=== PATIENT | male | born 1950 | race Caucasian/White ===

== ENCOUNTER 2019-08-15 17:00 | Emergency (ER) | payer OTHER ==
--- NOTE | 2019-08-15 17:34 | Emergency Department Record ---
History of Present Illness - General Chief complaint: Head Injury Stated complaint: FALL/HEAD LAC Time Seen by Provider: 08/15/19 17:14 Source: Patient Mode of Arrival: Ambulatory Limitations: No limitations Travel/Exposure to [place] Within 21 Days of Symptoms: No - History of Present Illness Initial comments: The patient is here due to getting dizzy at home and falling and cutting the R side of his head on his dog's dish bowl. The patient denies any LOC or neck pain and is not on any blood thinners. Since he has had no MCINTYRE or confusion. The patient states he was sitting at the kitchen table and got up and turned and be came dizzy and fell hitting his head. He did not pass out and was awake throughout the event. The patients also does corroborate his story. Presently the patient denies any weakness, MCINTYRE, neck pain, CP, SOB, nausea or AP. He has had no recent illnesses and no new medicines. The patient does have metastatic prostate CA presently. MD Complaint: Head injury Onset/Timin -: Hour(s) Mechanism of Injury: Other Location: Temporal Place: Home Severity scale (1-10): 8 Consistency: Constant Other Injuries: Laceration - Related Data Home Medications Medication Instructions Recorded Confirmed Last Taken Acetaminophen [Pain Relief] 650 mg PO Q8H 08/15/19 08/15/19 Unknown Allopurinol [Zyloprim] 300 mg PO DAILY 08/15/19 08/15/19 Unknown Amlodipine Besylate [Norvasc] 10 mg PO DAILY 08/15/19 08/15/19 Unknown Enzalutamide [Xtandi] 40 mg PO DAILY 08/15/19 08/15/19 Unknown Lisinopril 40 mg PO DAILY 08/15/19 08/15/19 Unknown Methocarbamol [Robaxin] 750 mg PO TID 08/15/19 08/15/19 Unknown Spironolactone [Aldactone] 25 mg PO DAILY 08/15/19 08/15/19 Unknown Venlafaxine HCl [Effexor] 37.5 mg PO DAILY 08/15/19 08/15/19 Unknown Zolpidem Tartrate [Ambien] 10 mg PO QHS 08/15/19 08/15/19 Unknown Allergies/Adverse reactions: Allergies Allergy/AdvReac Type Severity Reaction Status Date / Time No Known Drug Allergies Allergy Verified 08/15/19 17:17 Travel Screening - Travel/Exposure Within Last 30 Days Have you traveled within the last 30 days?: No - Travel/Exposure Within Last Year Have you traveled outside the [place] in the last year?: No - Additonal Travel Details Have you been exposed to anyone with a communicable illness?: No - Travel Symptoms Symptom Screening: Headache Review of Systems Constitutional: Denies: Chills, Fever Eyes: Denies: Eye discharge ENT: Denies: Congestion Respiratory: Denies: Cough, Dyspnea Cardiovascular: Denies: Arrhythmia Endocrine: Denies: Fatigue Gastrointestinal: Denies: Nausea Genitourinary: Denies: Dysuria Musculoskeletal: Denies: Arthralgia Skin: Denies: Bruising Past Medical History - SOCIAL HISTORY Smoking Status: Never smoker Alcohol Use: Rare Drug Use: None - RESPIRATORY Hx Respiratory Disorders: Yes Hx Sleep Apnea: Yes Hx of CPAP: Yes - CARDIOVASCULAR Hx Cardio Disorders: Yes Hx Hypertension: Yes - GI Hx GI Disorders: Yes Hx Hiatal Hernia: Yes (umbilical) - Hx Genitourinary Disorders: Yes Hx Prostate Problems: Yes - ENDOCRINE Hx Endocrine Disorders: No - MUSCULOSKELETAL Hx Musculoskeletal Disorders: Yes Hx Arthritis: Yes Hx Gout: Yes - PSYCH Hx Psych Problems: No - HEMATOLOGY/ONCOLOGY Hx Hematology/Oncology Disorders: Yes 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 negative: Atraumatic, Normal inspection (There is a 3 cm lac to the mid R parietal area.) - Eye Eye exam: Normal appearance, PERRL, EOMI. negative: Conjunctival injection - ENT Throat exam: Normal inspection. negative: Tonsillar erythema, Tonsillar exudate - Neck Neck exam: Normal inspection, Full ROM. negative: Tenderness - Respiratory Respiratory exam: Normal lung sounds bilaterally. negative: Respiratory distress - Cardiovascular Cardiovascular Exam: Regular rate, Normal rhythm, Normal heart sounds - GI/Abdominal GI/Abdominal exam: Soft, Normal bowel sounds. negative: Tenderness - Extremities Extremities exam: Normal inspection, Full ROM, Normal capillary refill. negative: Tenderness - Neurological Neurological exam: Alert, Normal gait. negative: Abnormal gait, Motor sensory deficit Course Vital Signs 08/15/19 17:10 Temperature 97.6 F Pulse Rate [ 65 Pulse Ox Probe] Respiratory 18 Rate Blood Pressure 124/70 [Right Arm] Pulse Ox 92 L - Reevaluation(s) Reevaluation #1: Procedure note: the scalp lac over the R parietal area was prepped with betadine and anesth. with Lido 1% with EPi. The wound was lavaged with sterile saline and not thru the muscle. The lac was then closed with 7 alexandra. There were no complications. 08/15/19 19:01 Reevaluation #2: The patient is doing very well at this time. He denies any serious head pain or any neck pain. I did discuss the EKG, labs and head CT with the patient and the need for follow up if not better. 08/15/19 19:02 Medical Decision Making - Data Complexity MDM Data: EKG Ordered and/or Reviewed - Lab Data Result diagrams: 08/15/19 17:47 08/15/19 17:47 - EKG Data -: EKG Interpreted by Me EKG: No Acute Changes (NSR at 59, LVH with repolarization abnormalities.) Disposition Disposition: Discharge Clinical Impression: Laceration of scalp Qualifiers: Encounter type: initial encounter Qualified Code(s): S01.01XA - Laceration without foreign body of scalp, initial encounter Disposition: Home, Self-Care Condition: (2) Stable Instructions: Laceration (ED), Head Injury (ED) Additional Instructions: Keep the scalp dry for 2 days and use Tylenol for pain. Have the alexandra removed in 10 days. Return to the ER for any return of the dizziness, worsening headache, vomiting, or confusion. Forms: Patient Portal Access Time of Disposition: 18:59 Quality - Quality Measures Quality Measures: N/A - Blood Pressure Screening View Details: Yes Does Patient Have Any of the Following: Active Dx of HTN Blood Pressure Classification: Pre-Hypertensive BP Reading Systolic Measurement: 124 Diastolic Measurement: 70 Screening for High Blood Pressure: Patient Exclusion, Hx of HTN [G9744]
[2019-08-15 17:53] LABS: ABSOLUTE NEUTROPHIL COUNT 9.72; BASO % 0.2 % (0-6); EOS % 1.2 % (0-6); GRAN % 78.2 % (47-80); HEMOGLOBIN 14.3 gm/dl (14.0-18.0); LYMPH % 14.1 % (16-45); MEAN CELL VOLUME 90.3 fl (81-97); MEAN CORPUSCULAR HEMOGLOBIN 29.4 pg (27-33); MEAN CORPUSCULAR HGB CONC 32.5 g/dl (32-36); MEAN PLATELET VOLUME 9.5 fl (7.4-10.4); MONO % 6.3 % (0-9); PLATELET COUNT 316 K/uL (130-400); RED BLOOD COUNT 4.87 M/uL (4.40-5.70); RED CELL DISTRIBUTION WIDTH 14.5 % (11.5-14.5); WHITE BLOOD COUNT W/O DIFF 12.4 K/uL (4.2-12.2)
[2019-08-15 18:08] LABS: BLOOD UREA NITROGEN 22 mg/dL (8-23); CREATININE 1.2 mg/dL (0.7-1.2); EST GLOMERULAR FILTRATION RATE > 60 mL/min
[2019-08-15 18:09] LABS: TOTAL PROTEIN 6.6 g/dL (6.6-8.7)
[2019-08-15 18:11] LABS: GLUCOSE,RANDOM 123 mg/dL (74-109)
[2019-08-15 18:14] LABS: ALB/GLOB RATIO 1.6 (1.1-1.8); ALBUMIN 4.1 g/dL (4.0-5.0); ALKALINE PHOSPHATASE 53 U/L (40-129); ALT/SGPT 18 U/L (<41); AST/SGOT 20 U/L (10.0-50.0)
--- NOTE | 2019-08-15 18:50 | CT SCAN REPORT ---
EXAMINATION: CT Head without IV Contrast EXAM DATE: 08/15/2019 6:02 PM TECHNIQUE: Standard protocol CT images of the head were obtained without intravenous contrast. Kingsley l and sagittal reconstructed images were created. INDICATION: R sided head trauma. COMPARISON: None HAND DOMINANCE: Unknown. ENCOUNTER: Not applicable FINDINGS: 1. There are no focal areas of abnormal brain attenuation. No acute intracranial hemorrhage is noted . 2. The ventricles, sulci, and the cisterns are normal in size and in morphology. No mass effect, mid line shift nor extra-axial fluid collections are noted. 3. No skull abnormalities are noted. 4. The paranasal sinuses are well aerated. The mastoid air cells are well aerated. IMPRESSION: Normal CT scan of the head. Dictated by: Naseem Cortez MD on 08/15/2019 6:44 PM. .
== END 2019-08-15 19:08 | disposition home or self-care (01) ==
LOC: ER 17:00
DX: S01.01XA Laceration without foreign body of scalp, initial encounter (principal); R51 Headache; W01.198A Fall on same level from slipping, tripping and stumbling with subsequent striking against other object, initial encounter; Y92.000 Kitchen of unspecified non-institutional (private) residence as the place of occurrence of the external cause; I10 Essential (primary) hypertension; R42 Dizziness and giddiness; C61 Malignant neoplasm of prostate; C79.51 Secondary malignant neoplasm of bone
CPT/HCPCS: 12002; 70450; 80053; 85025; 93005; 93010; 99284

== ENCOUNTER 2019-08-24 18:49 | Emergency (ER) | payer OTHER ==
--- NOTE | 2019-08-24 18:57 | Emergency Department Record ---
History of Present Illness - General Chief Complaint: Suture removal Stated Complaint: REMOVE STPLES Time Seen by Provider: 08/24/19 18:51 Source: Patient Mode of arrival: Ambulatory Limitations: No limitations - History of Present Illness Initial Comments: The patient is here for suture removal. He denies any problems. Complaint: Suture/staple removal Onset/Timin -: Days(s) Initial Visit For: Laceration Returns Today for: Staple/stitch removal, Wound recheck Symptoms Since Prior Visit: No new symptoms - Related Data Allergies Allergy/AdvReac Type Severity Reaction Status Date / Time No Known Drug Allergies Allergy Verified 08/24/19 18:56 Travel Screening - Travel/Exposure Within Last 30 Days Have you traveled within the last 30 days?: No - Travel/Exposure Within Last Year Have you traveled outside the [place] in the last year?: No - Additonal Travel Details Have you been exposed to anyone with a communicable illness?: No - Travel Symptoms Symptom Screening: None Review of Systems Constitutional: Denies: Chills Past Medical History - SOCIAL HISTORY Smoking Status: Never smoker Alcohol Use: None Drug Use: None - RESPIRATORY Hx Respiratory Disorders: Yes Hx Sleep Apnea: Yes Hx of CPAP: Yes - CARDIOVASCULAR Hx Cardio Disorders: Yes Hx Hypertension: Yes - GI Hx GI Disorders: Yes Hx Hiatal Hernia: Yes (umbilical) - Hx Genitourinary Disorders: Yes Hx Prostate Problems: Yes - ENDOCRINE Hx Endocrine Disorders: No - MUSCULOSKELETAL Hx Musculoskeletal Disorders: Yes Hx Arthritis: Yes Hx Gout: Yes - PSYCH Hx Psych Problems: No - HEMATOLOGY/ONCOLOGY Hx Hematology/Oncology Disorders: Yes 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 The alexandra were removed without any issues.) Course Vital Signs 08/24/19 18:51 Temperature 98.0 F Pulse Rate 83 Respiratory 16 Rate Blood Pressure 143/95 Pulse Ox 97 Disposition Disposition: Discharge Clinical Impression: Removal of alexandra Disposition: Home, Self-Care Condition: (2) Stable Instructions: Stitches Removal (ED) Additional Instructions: Return to the ER for any problems. Forms: Patient Portal Access Time of Disposition: 18:57 Quality - Quality Measures Quality Measures: N/A - Blood Pressure Screening View Details: Yes Does Patient Have Any of the Following: No Blood Pressure Classification: Hypertensive Reading Systolic Measurement: 143 Diastolic Measurement: 95 Screening for High Blood Pressure: < First Hypertensive BP, F/U Documented > [G8950] First Hypertensive Follow-up Interventions: Referral to alternative/primary care provider.
== END 2019-08-24 18:59 | disposition home or self-care (01) ==
LOC: ER 18:49
DX: Z48.02 Encounter for removal of sutures (principal)